=== PATIENT | male | born 1980 | race Caucasian/White ===

== ENCOUNTER → 2016-03-19 | Outpatient (CLI) | payer OTHER ==
[~2016-03-19] MED LIST: AMOX500T3 PO; ASPI-390 PO; EFF75 PO; HYDR-5688 PO; MIRT15TA3 PO; TRIA0.1C55 TOP
[2016-03-19 10:23] LABS: ALT/SGPT 85 U/L (12-78); BLOOD UREA NITROGEN 20 mg/dl (7-18); BUN/CREATININE RATIO 19.8 (10-20); CARBON DIOXIDE 23 mmol/L (21-32); CHLORIDE 108 mmol/L (98-107); GLUCOSE 82 mg/dl (70-99); SODIUM 141 mmol/L (136-145)
[2016-03-19 10:26] LABS: ALKALINE PHOSPHATASE 168 U/L (45-117); AST/SGOT 65 U/L (15-37)
--- NOTE | 2016-03-21 10:20 | CODING QUERY NO DIAGNOSIS ---
TREATMENT RENDERED WITHOUT A DIAGNOSIS To promote full compliance with coding requirements relating to patient care, physician participation is requested in all cases of smearer uncertainty. Please assist us with providing a diagnosis/symptom for the test(s) below: A diagnosis/symptom was not documented on your Order. A valid diagnosis/symptom is required to bill all insurances. Please remember that we are unable to code a diagnosis of rule out, probable, possible, questionable, or suspected. DATE OF SERVICE: 03/19/16 Tests that require a diagnosis: * COMPLETE METABOLIC PROFILE DIAGNOSIS: * LITHIUM LEVELS DIAGNOSIS: Provider Signature: Date: Thank you Michelle Bennett [facility] Information Management Once completed, please kindly fax back to [phone] For questions please call [phone]
== END | disposition home or self-care (01) ==
LOC: C.LAB 09:03
PROVIDERS: ATTEND Family Medicine
DX: Z91.018 Allergy to other foods (principal)